=== PATIENT | female | born 1970 | race Hispanic/Latino ===

== ENCOUNTER 2019-03-04 10:05 | Inpatient (IN) | payer SELFPAY ==
--- NOTE | 2019-03-04 10:37 | Emergency Department Report ---
ED Chest Pain HPI - General Chief Complaint: Chest Pain Stated Complaint: CHEST PAIN Time Seen by Provider: 03/04/19 10:29 Source: patient Mode of arrival: Ambulatory Limitations: No Limitations - History of Present Illness Initial Comments: 48 year old female the past medical history CAD/MS with stent placement to mid LAD in 2013 (at [facility]), previous apical thrombus, current smoker, and hypertension presents to the hospital complains of left-sided chest tightness since 5:36 AM. Patient is intermittent and radiates to the left side of the neck. Mild shortness of breath without nausea, vomiting, or diaphoresis. Similar to previous MS but "more severe". Aggravating or alleviating factors reported. Patient took 10 tablets of aspirin 81 mg this morning. Otherwise, patient has been has only been taking aspirin 81 mg daily. She has been noncom pliant with her Plavix, blood pressure medication, and is not currently taking a statin. She reports that she had a "bad heart attack" that she has self-limited and had angioplasty. Pt also admit to heavy alcohol use last night. She is not currently being seen by a [facility] specialists - Related Data Previous Rx's Medication Instructions Recorded Last Taken Type Aspirin [Aspirin BABY CHEW TAB] 81 mg PO QDAY #30 tab.chew 03/23/13 Unknown Rx Atorvastatin [Lipitor] 40 mg PO QHS #30 tab 03/23/13 Unknown Rx Clopidogrel [Plavix] 75 mg PO QDAY #30 tablet 03/23/13 Unknown Rx Enoxaparin [Lovenox] 60 mg SQ BID #14 syringe 03/23/13 Unknown Rx Nicotine [Habitrol] 21 mg TD DAILY #30 patch 03/23/13 Unknown Rx Warfarin [Coumadin] 5 mg PO DAILY@1700 #30 tablet 03/23/13 Unknown Rx Allergies Allergy/AdvReac Type Severity Reaction Status Date / Time No Known Allergies Allergy Unverified 03/20/13 11:14 Heart Score - HEART Score History: Slightly suspicious EKG: Non-specific Age: 45-65 Risk factors: > 3 risk factors or hx of atherosclerotic disease Troponin: < normal limit HEART Score: 4 ED Review of Systems ROS: Stated complaint: CHEST PAIN Other details as noted in HPI Comment: All other systems reviewed and negative ED Past Medical Hx - Past Medical History Hx Hypertension: No Hx Heart Attack/AMI: No Hx Congestive Heart Failure: No Hx Diabetes: No Hx Deep Vein Thrombosis: No Hx Pulmonary Embolism: No Hx Liver Disease: No Hx Renal Disease: No Hx Sickle Cell Disease: No Hx Arthritis: No Hx Seizures: No Hx Kidney Stones: Yes (3 yrs ago) Hx Asthma: No Hx COPD: No Hx Tuberculosis: No Hx Dementia: No Hx HIV: No Additional medical history: Negative for cardiac problems. - Surgical History Hx Coronary Stent: Yes (03/20/13) Hx Open Heart Surgery: No Hx Pacemaker: No Hx Internal Defibrillator: No Hx Cholecystectomy: No Hx Appendectomy: No Hx Breast Surgery: No Additional Surgical History: kidney stones - Social History Smoking Status: Current Every Day Smoker - Medications Home Medications: Home Medications Medication Instructions Recorded Confirmed Last Taken Type Aspirin [Aspirin BABY CHEW TAB] 81 mg PO QDAY #30 tab.chew 03/23/13 Unknown Rx Atorvastatin [Lipitor] 40 mg PO QHS #30 tab 03/23/13 Unknown Rx Clopidogrel [Plavix] 75 mg PO QDAY #30 tablet 03/23/13 Unknown Rx Enoxaparin [Lovenox] 60 mg SQ BID #14 syringe 03/23/13 Unknown Rx Nicotine [Habitrol] 21 mg TD DAILY #30 patch 03/23/13 Unknown Rx Warfarin [Coumadin] 5 mg PO DAILY@1700 #30 tablet 03/23/13 Unknown Rx ED Physical Exam - General Limitations: No Limitations - Other Other exam information: General: No acute distress Head: Atraumatic Eyes: normal appearance ENT: Moist mucous membranes Neck: Normal appearance, no midline tenderness Chest: Clear to auscultation bilaterally CV: Regular rate and rhythm Abdomen: Soft, normal bowel sounds, nontender, nondistended, no rebound or guarding Back: Normal inspection Extremity: Normal inspection, full range of motion, no calf tenderness or leg edema Neuro: Alert O x 3, no facial asymmetry, speech clear, no gross motor sensory deficit Psych: Appropriate behavior Skin: No rash ED Course Vital Signs 03/04/19 03/04/19 03/04/19 10:20 10:31 10:45 Temperature Pulse Rate 79 79 Respiratory 22 10 L Rate Blood Pressure 160/94 136/81 Blood Pressure [Left] O2 Sat by Pulse 98 96 96 Oximetry 03/04/19 03/04/19 03/04/19 11:00 11:04 11:15 Temperature Pulse Rate 83 77 79 Respiratory 12 13 Rate Blood Pressure 153/87 153/87 147/86 Blood Pressure [Left] O2 Sat by Pulse 94 97 Oximetry 03/04/19 03/04/19 03/04/19 11:30 11:45 12:00 Temperature Pulse Rate 71 68 70 Respiratory 12 15 15 Rate Blood Pressure 138/81 127/74 118/71 Blood Pressure [Left] O2 Sat by Pulse 94 94 Oximetry 03/04/19 03/04/19 03/04/19 12:09 12:15 12:30 Temperature 98 F Pulse Rate 72 69 67 Respiratory 16 18 16 Rate Blood Pressure 115/65 115/69 Blood Pressure 118/71 [Left] O2 Sat by Pulse 95 95 97 Oximetry 03/04/19 12:45 Temperature Pulse Rate 66 Respiratory 18 Rate Blood Pressure 120/68 Blood Pressure [Left] O2 Sat by Pulse Oximetry - Consultations Consultation #1: 03/04/19 10:[address] Stewart plant clerk entry level sales consultant. He evaluated today's EKG as well as EKG from 2013. EKG changes today thought to be as a result of previous MS and not representing acute findings. He does not recommend cath activation at this time. He recommends heparin and medical management and consulting previous cardiology group to see if they want to manage the patient since she was seen by [facility] here in the past 03/04/19 11:16 DR Sims with [facility] in ED to evaluate pt. DEBRA score - Debra Score Age > 65: (0) No Aspirin use within the Past 7 Days: (1) Yes 3 or more CAD Risk Factors: (1) Yes 2 or more Angina events in past 24 hrs: (1) Yes Known CAD with more than 50% Stenosis: (0) No Elevated Cardiac Markers: (0) No (actually unknown) ST Deviation Greater than 0.5mm: (1) Yes DEBRA Score: 4 ED Medical Decision Making - Lab Data Result diagrams: 03/04/19 Unknown 03/04/19 Unknown - EKG Data -: EKG Interpreted by Me EKG shows normal: sinus rhythm, ST-T waves (ant lateral and st elevation, q waves) - EKG Data When compared to previous EKG there are: no significant change - Radiology Data Radiology results: report reviewed (cxr: naf) - Medical Decision Making Pr presents with chest pain without any acute EKG findings. Case discussed with cardiology and EKG findings thought to be due to sequela of previous MS. Patient is at risk for MS, as it was not, and reocclusion of stent given noncompliance with medication and continued tobacco use. Initial troponin is negative. Patient took 810 mg of aspirin prior to arrival. Heparin initiated, morphine and Zofran for pain, patient will be admitted to hospitalist service with cardiology consultation. admission was d/w Dr Howard, awaiting Dr Panchal call back. orders placed - Differential Diagnosis mi, unstable angina, gerd Critical Care Time: No Critical care attestation.: If time is entered above; I have spent that time in minutes in the direct care of this critically ill patient, excluding procedure time. ED Disposition Clinical Impression: Chest pain, Hx of coronary artery disease, Hx of heart artery stent, Ischemic cardiomyopathy, Noncompliance with medication regimen, Smoker Disposition: OP ADMIT IP TO THIS HOSP Is pt being admited?: Yes Condition: Stable Time of Disposition: 11:31 ([place]/hosp)
[2019-03-04] MEDS ORDERED: NITROGLYCERIN 2% OINT 1 GM TP ONE (10:38)
[2019-03-04 10:44] LABS: Basophils # (Auto) 0.1 K/mm3 (0.0-0.1); Basophils % (Auto) 0.7 % (0.0-1.8); Eosinophils % (Auto) 0.2 % (0.0-4.3); Hematocrit 49.6 % (30.3-42.9); Hemoglobin 16.8 gm/dl (10.1-14.3); Lymphocytes # (Auto) 1.7 K/mm3 (1.2-5.4); Lymphocytes % (Auto) 18.8 % (13.4-35.0); Mean Corpuscular HGB Conc 34 % (30-34); Mean Corpuscular Volume 92 fl (79-97); Monocytes # (Auto) 0.4 K/mm3 (0.0-0.8); Monocytes % (Auto) 4.2 % (0.0-7.3); Platelet Count 181 K/mm3 (140-440); Red Blood Count 5.38 M/mm3 (3.65-5.03); Red Cell Distribution Width 13.1 % (13.2-15.2)
[2019-03-04] MEDS ORDERED: HEPARIN 10,000 UNITS/10 ML VIAL IV ONE (10:46)
[2019-03-04 10:54] LABS: INR 0.95 (0.87-1.13)
[2019-03-04 10:55] LABS: Partial Thromboplastin Time 25.8 Sec. (24.2-36.6)
[2019-03-04] MEDS ORDERED: HEPARIN/ 0.45% NACL DRIP 25,000 UNIT/500 ML BAG IV SCH ×2 (11:00→12:00)
--- NOTE | 2019-03-04 11:00 | XRay Report ---
CHEST 1 VIEW INDICATION: Chest Pain. COMPARISON: 03/20/2013. FINDINGS: Support devices: None. Heart: Normal. Lungs/Pleura: No acute pulmonary or pleural findings. IMPRESSION: 1. No acute findings. Signer Name: Nito Valle MD Signed: 03/04/2019 10:55 AM Workstation Name: [id number]
[2019-03-04] MEDS ORDERED: ONDANSETRON 4 MG/2 ML INJ IV ONE (11:13)
[2019-03-04] MEDS ORDERED: MORPHINE 4 MG/1 ML INJ IV ONE (11:13)
[2019-03-04 11:20] LABS: Alanine Aminotransferase 19 units/L (7-56); Albumin 4.6 g/dL (3.9-5); BUN/Creatinine Ratio 13; Blood Urea Nitrogen 10 mg/dL (7-17); Calcium 9.4 mg/dL (8.4-10.2); Hemolysis Index 11
[2019-03-04] MEDS ORDERED: FAMOTIDINE 20 MG/2 ML INJ IV ONE (11:22)
--- NOTE | 2019-03-04 14:06 | History and Physical Report ---
History of Present Illness Date of admission: 03/04/19 11:52 Chief complaint: Chest pain History of present illness: 48-year-old woman with history of coronary artery disease status post stents in the past, previous apical thrombus, current everyday smoker and hypertension. Patient presents to the hospital with chest pain that began acutely this morning at 530. The pain is left-sided of her chest radiates to her left side of her neck. She did report associated shortness of breath nausea vomiting she also had diaphoresis. She states that her symptoms were exactly like her previous [place] except that it was more severe. The patient then took 10 tablets of baby aspirin because she was convinced that she was having a heart attack. She had not been compliant with her Plavix and blood pressure medications, she also reports that she stopped taking the statin. She not actually explained while she was not taking her meds, she also admits to drinking heavily for celebration last night. She has not seen her internetworking technician in a long time. Past medical history CAD status post stent history of [place] in 2013, nephrolithiasis, hyperlipidemia Surgical history lithotripsy Social history current every day smoker, denies daily alcohol abuse, but drank heavily last night for Winnie celebration Family history; heart disease Medications and Allergies Allergies Allergy/AdvReac Type Severity Reaction Status Date / Time No Known Allergies Allergy Unverified 03/20/13 11:14 Home Medications Medication Instructions Recorded Confirmed Last Taken Type Aspirin [Aspirin BABY CHEW TAB] 81 mg PO QDAY #30 tab.chew 03/23/13 Unknown Rx Atorvastatin [Lipitor] 40 mg PO QHS #30 tab 03/23/13 Unknown Rx Clopidogrel [Plavix] 75 mg PO QDAY #30 tablet 03/23/13 Unknown Rx Enoxaparin [Lovenox] 60 mg SQ BID #14 syringe 03/23/13 Unknown Rx Nicotine [Habitrol] 21 mg TD DAILY #30 patch 03/23/13 Unknown Rx Warfarin [Coumadin] 5 mg PO DAILY@1700 #30 tablet 03/23/13 Unknown Rx Active Meds: Active Medications Heparin Sodium/Sodium Chloride (Heparin/ 0.45% Nacl-25,000 Unit/500 Ml) 25,000 unit in 500 mls @ 20 mls/hr IV TITRATE AXEL; Protocol Review of Systems All systems: negative (Chest pain) Exam - Constitutional Vitals: Temp Pulse Resp BP Pulse Ox 98 F 66 18 120/68 97 03/04/19 12:09 03/04/19 12:45 03/04/19 12:45 03/04/19 12:45 03/04/19 12:30 General appearance: Present: mild distress, well-nourished - EENT Eyes: Present: PERRL ENT: hearing intact, clear oral mucosa - Neck Neck: Present: supple, normal ROM - Respiratory Respiratory effort: normal Respiratory: bilateral: CTA - Cardiovascular Heart Sounds: Present: S1 & S2. Absent: rub, click - Extremities Extremities: pulses symmetrical, No edema Peripheral Pulses: within normal limits - Abdominal General gastrointestinal: Present: soft, non-tender, non-distended, normal bowel sounds Female genitourinary: Present: normal - Integumentary Integumentary: Present: clear, warm, dry - Musculoskeletal Musculoskeletal: gait normal, strength equal bilaterally - Psychiatric Psychiatric: appropriate mood/affect, intact judgment & insight - Neurologic Neurologic: CNII-XII intact, moves all extremities Results - Labs CBC & Chem 7: 03/04/19 Unknown 03/04/19 Unknown Labs: Laboratory Last Values WBC 9.3 K/mm3 (4.5-11.0) 03/04/19 Unknown RBC 5.38 M/mm3 (3.65-5.03) H 03/04/19 Unknown Hgb 16.8 gm/dl (10.1-14.3) H 03/04/19 Unknown Hct 49.6 % (30.3-42.9) H 03/04/19 Unknown MCV 92 fl (79-97) 03/04/19 Unknown MCH 31 pg (28-32) 03/04/19 Unknown MCHC 34 % (30-34) 03/04/19 Unknown RDW 13.1 % (13.2-15.2) L 03/04/19 Unknown Plt Count 181 K/mm3 (140-440) 03/04/19 Unknown Lymph % (Auto) 18.8 % (13.4-35.0) 03/04/19 Unknown [place] % (Auto) 4.2 % (0.0-7.3) 03/04/19 Unknown Eos % (Auto) 0.2 % (0.0-4.3) 03/04/19 Unknown Baso % (Auto) 0.7 % (0.0-1.8) 03/04/19 Unknown Lymph # 1.7 K/mm3 (1.2-5.4) 03/04/19 Unknown [place] # 0.4 K/mm3 (0.0-0.8) 03/04/19 Unknown Eos # 0.0 K/mm3 (0.0-0.4) 03/04/19 Unknown Baso # 0.1 K/mm3 (0.0-0.1) 03/04/19 Unknown Seg Neutrophils % 76.1 % (40.0-70.0) H 03/04/19 Unknown Seg Neutrophils # 7.1 K/mm3 (1.8-7.7) 03/04/19 Unknown PT 12.8 Sec. (12.2-14.9) 03/04/19 Unknown INR 0.95 (0.87-1.13) 03/04/19 Unknown APTT 25.8 Sec. (24.2-36.6) 03/04/19 Unknown Sodium 143 mmol/L (137-145) 03/04/19 Unknown Potassium 4.0 mmol/L (3.6-5.0) 03/04/19 Unknown Chloride 104.0 mmol/L (98-107) 03/04/19 Unknown Carbon Dioxide 24 mmol/L (22-30) 03/04/19 Unknown Anion Gap 19 mmol/L 03/04/19 Unknown BUN 10 mg/dL (7-17) 03/04/19 Unknown Creatinine 0.8 mg/dL (0.7-1.2) 03/04/19 Unknown Estimated GFR > 60 ml/min 03/04/19 Unknown BUN/Creatinine Ratio 13 % 03/04/19 Unknown Glucose 81 mg/dL (65-100) 03/04/19 Unknown Calcium 9.4 mg/dL (8.4-10.2) 03/04/19 Unknown Total Bilirubin 0.40 mg/dL (0.1-1.2) 03/04/19 Unknown AST 24 units/L (5-40) 03/04/19 Unknown ALT 19 units/L (7-56) 03/04/19 Unknown Alkaline Phosphatase 105 units/L (35-129) 03/04/19 Unknown Troponin T < 0.010 ng/mL (0.00-0.029) 03/04/19 Unknown Total Protein 7.8 g/dL (6.3-8.2) 03/04/19 Unknown Albumin 4.6 g/dL (3.9-5) 03/04/19 Unknown Albumin/Globulin Ratio 1.4 % 03/04/19 Unknown Assessment and Plan Assessment and plan: 48-year-old woman with history of CAD status post [place] in 2013 after which she received a stents, who has not been compliant with follow-up with internetworking technician on her cardiac meds who presents after an alcohol binge for Winnie celebration she woke up early this morning with severe chest pain which was concerning to patient she was convinced was suffering an [place] Non-STEMI cardiology input appreciated, continue heparin drip, aspirin, plavix, beta- sarita morphine, nitroglycerin as needed, statin Patient for cath in the a.m. Tobacco abuse/dependence Smoking cessation counseling performed for 10 minutes, nicotine patches when necessary Nonadherence due to lack of insurance Patient counseled, case management consulted to provide outpatient resources Preventative health counseling performed for 17 minutes DVT prophylaxis, patient is fully anticoagulated on heparin drip
[2019-03-04] MEDS ORDERED: ACETAMINOPHEN 325 MG TAB PO PRN (14:17)
[2019-03-04] MEDS ORDERED: ONDANSETRON 4 MG/2 ML INJ IV PRN (14:17)
--- NOTE | 2019-03-04 14:19 | Consultation ---
History of Present Illness Consult date: 03/04/19 Consult reason: chest pain Past History Past Medical History: acute VT, CAD, hypertension Past Surgical History: cholecystectomy Social history: smoking (chronic smoker,1 ppd.) Medications and Allergies Allergies Allergy/AdvReac Type Severity Reaction Status Date / Time No Known Allergies Allergy Unverified 03/20/13 11:14 Home Medications Medication Instructions Recorded Confirmed Last Taken Type Aspirin [Aspirin BABY CHEW TAB] 81 mg PO QDAY #30 tab.chew 03/23/13 Unknown Rx Atorvastatin [Lipitor] 40 mg PO QHS #30 tab 03/23/13 Unknown Rx Clopidogrel [Plavix] 75 mg PO QDAY #30 tablet 03/23/13 Unknown Rx Enoxaparin [Lovenox] 60 mg SQ BID #14 syringe 03/23/13 Unknown Rx Nicotine [Habitrol] 21 mg TD DAILY #30 patch 03/23/13 Unknown Rx Warfarin [Coumadin] 5 mg PO DAILY@1700 #30 tablet 03/23/13 Unknown Rx Active Meds: Active Medications Heparin Sodium/Sodium Chloride (Heparin/ 0.45% Nacl-25,000 Unit/500 Ml) 25,000 unit in 500 mls @ 20 mls/hr IV TITRATE AXEL; Protocol Review of Systems Constitutional: no weight loss Ears, nose, mouth and throat: no ear discharge Breasts: deferred Cardiovascular: chest pain, lightheadedness, shortness of breath Respiratory: no cough Gastrointestinal: no abdominal pain Rectal: no bleeding Integumentary: no rash Physical Examination Vital Signs Pulse Ox 98 03/04/19 10:20 General appearance: no acute distress Cardiac: Positive: Reg Rate and Rhythm, S4. Negative: Audible Murmur Lungs: Positive: Decreased Breath Sounds Neuro: Positive: Grossly Intact Extremities: Absent: edema Results 03/04/19 Unknown 03/04/19 Unknown Cardiac Enzymes 03/04/19 Range/Units Unknown AST 24 (5-40) units/L Coagulation 03/04/19 Range/Units Unknown PT 12.8 (12.2-14.9) Sec. INR 0.95 (0.87-1.13) APTT 25.8 (24.2-36.6) Sec. CBC 03/04/19 Range/Units Unknown WBC 9.3 (4.5-11.0) K/mm3 RBC 5.38 H (3.65-5.03) M/mm3 Hgb 16.8 H (10.1-14.3) gm/dl Hct 49.6 H (30.3-42.9) % Plt Count 181 (140-440) K/mm3 Lymph # 1.7 (1.2-5.4) K/mm3 [place] # 0.4 (0.0-0.8) K/mm3 Eos # 0.0 (0.0-0.4) K/mm3 Baso # 0.1 (0.0-0.1) K/mm3 Comprehensive Metabolic Panel 03/04/19 Range/Units Unknown Sodium 143 (137-145) mmol/L Potassium 4.0 (3.6-5.0) mmol/L Chloride 104.0 (98-107) mmol/L Carbon Dioxide 24 (22-30) mmol/L BUN 10 (7-17) mg/dL Creatinine 0.8 (0.7-1.2) mg/dL Glucose 81 (65-100) mg/dL Calcium 9.4 (8.4-10.2) mg/dL AST 24 (5-40) units/L ALT 19 (7-56) units/L Alkaline Phosphatase 105 (35-129) units/L Total Protein 7.8 (6.3-8.2) g/dL Albumin 4.6 (3.9-5) g/dL EKG interpretations - EKG Sinus rhythms and dysrhythmias: sinus rhythm (Q waves and ST elevation in inferior leads and also persistent ST elevations in anterior leads,felt to be chronic.) Assessment and Plan 48-year-old female started having left-sided chest tightness starting around 5:30 in the morning. This pain is intermittent and radiating to the neck. Associated with shortness of breath. She she took 10 baby aspirin this morning. She is still having persistent pain along with shortness of breath. She says her pain is worse than her previous heart attack. She also says she had heavy alcohol use last night. Usually she drinks one beer a day. EKG showed sinus rhythm with ST elevations and Q waves in the inferior and anterior leads however the changes appear to be chronic. Troponin level was found to be normal. Because of persistent chest pain she will be treated as unstable angina. Serial cardiac enzymes were obtained. She will be admitted limited to monitored bed and the consider cardiac catheterization. Patient had acute apical myocardial infarction in 2013 and he had his mid LAD ba re-metal stent inserted at that time. Subsequently patient had acute inferior wall myocardial infarction and had angioplasty performed on 10/26/[address] [facility], [place], she was noted to have a complete occlusion of the midright coronary artery and underwent primary angioplasty and stenting of the right coronary artery with a bare metal stent. However at the same time she was noted to have chronic total occlusion of the mid to distal LAD in the previously stented segment, 75-80% DNA was stenosis of the midcircumflex artery was planned to have selective stated intervention possibly as an outpatient on October Patient was last seen in the office on 05/16/2014 and her medications at that time included aspirin 81 mg daily, atorvastatin 40 mg, carvedilol 3.125 mg twice a day isosorbide 30 mg a day Lasix 20 mg a day and Plavix 75 mg day. However patient is not taking any of the medications except for baby aspirin. She is not seeing any primary care physician. She continues to smoke one pack per day. At this time considering the above clinical picture would Restart her on previo us medications. Will consider cardiac catheterization for definitive diagnosis and treatment. Patient is agreeable with the plan.
[2019-03-04] MEDS ORDERED: MORPHINE 4 MG/1 ML INJ ONE ×3 (14:44→19:28)
[2019-03-04] MEDS: MORPHINE 2 MG/1 ML INJ IV PRN ×8 (14:50→22:00)
[2019-03-04] MEDS ORDERED: SODIUM CHLORIDE 0.9% 500 ML 500 ML IV SCH (15:00)
[2019-03-04] MEDS: METOPROLOL TARTRATE 50 MG TAB PO SCH ×2 (15:05→22:18)
[2019-03-04] MEDS ORDERED: MORPHINE 2 MG/1 ML INJ ONE ×4 (15:40→21:58)
[2019-03-04] MEDS: NICOTINE 21 MG/24 HR PATCH TD SCH (15:46)
[2019-03-04] MEDS ORDERED: NITROGLYCERIN 0.4 MG TAB SUBL SL ONE (17:46)
[2019-03-04] MEDS: NITROGLYCERIN 0.4 MG TAB SUBL SL PRN ×3 (17:52→19:50)
[2019-03-04 19:03] LABS: BUN/Creatinine Ratio 19; Blood Urea Nitrogen 15 mg/dL (7-17); Calcium 8.7 mg/dL (8.4-10.2); Hemolysis Index 7
[2019-03-04 20:15] LABS: Chol/HDL Ratio 3.76 %
[2019-03-05] MEDS ORDERED: SODIUM CHLORIDE 0.9% 500 ML 500 ML ONE (07:58)
[2019-03-05] MEDS ORDERED: ASPIRIN EC 81 MG TAB PO ONE (07:58)
[2019-03-05] MEDS: ASPIRIN 81 MG TAB CHEW PO SCH ×2 (08:03→12:04)
[2019-03-05] MEDS: CLOPIDOGREL 75 MG TAB PO SCH ×2 (08:05→10:00)
[2019-03-05] MEDS ORDERED: CLOPIDOGREL 75 MG TAB ONE (08:06)
[2019-03-05] MEDS ORDERED: HEPARIN/NS 5000 UNIT/500ML 1,000 ML IR ONE (08:15)
[2019-03-05] MEDS ORDERED: MIDAZOLAM 2 MG/2 ML INJ ONE (08:15)
[2019-03-05] MEDS ORDERED: VERAPAMIL 5 MG/2 ML INJ ONE (08:16)
[2019-03-05] MEDS: NITROGLYCERIN SYRINGE 3 ML ONE ×2 (09:13→09:17)
[2019-03-05] MEDS: LIDOCAINE (2%) 20 MG/1 ML VIAL 20 ML MDV INFILTRATI ONE ×2 (09:15→09:16)
[2019-03-05] MEDS: fentaNYL 100 MCG/2 ML INJ ONE ×2 (09:15→09:54)
[2019-03-05] MEDS: HEPARIN 10,000 UNITS/10 ML VIAL ONE ×3 (09:16→09:30)
[2019-03-05] MEDS ORDERED: NITROGLYCERIN SYRINGE 3 ML ONE (10:03)
[2019-03-05] MEDS ORDERED: CLOPIDOGREL 300 MG TAB ONE (10:12)
[2019-03-05] MEDS ORDERED: ALUM-MAG HYDROXIDE-SIMETHICONE 200-200-20MG/5ML ORAL LIQD 30 ML ONE (10:12)
--- NOTE | 2019-03-05 10:38 | Cardiac Catherization Report ---
INDICATION FOR PROCEDURE: The patient is a pleasant 48-year-old female with history of STEMI in 2014, repeat PCI in 2015, history of noncompliance, active tobacco use, presents with chest pain, non-ST elevation myocardial infarction, referred for left heart catheterization. Risks, benefits, and alternatives explained at length prior to obtaining informed consent. PROCEDURE IN DETAIL: The patient was brought to catheterization lab in a postabsorptive state, prepped and draped in sterile fashion. Ryan's test in right hand was normal. A 2 mL of 2% lidocaine used to anesthetize the right wrist. A standard 6-Indonesian hydrophilic sheath used to cannulate the right radial artery via modified Seldinger technique. All exchanges performed to exchange a J-tip guidewire. JL3.5 catheter was used to engage the left main. No dampening or ventricularization. Cineangiography performed in all projections. JR4 catheter used to cross the aortic valve under fluoroscopic guidance. Left ventriculography performed in 30 FLORES and 30 DOROTHY projections via hand injection, catheter flushed. Manual pullback performed with continuous pressure monitoring. Catheter used to engage the right coronary. No dampening or ventricularization. Cineangiography performed in all projections. I directly supervised the administration of moderate sedation with fentanyl and Versed from 9:15 a.m. to 10:20 a.m. No immediate complications. DATA: The patient remained in normal sinus rhythm throughout the procedure. Aortic pressure is 130/70, LV pressure is 130, LVP of 25 mmHg. Left ventriculography reveals anterior apical dyskinesis, estimated ejection fraction of 35-40%. No evidence of aortic stenosis. CORONARY ANATOMY: This is a right dominant system. Left main without significant disease, bifurcates in left anterior descending and left circumflex. Left main without significant disease. LAD is a moderate sized vessel, courses anterior intergroove. There is a chronic total occlusion of proximal LAD. This has been noted since 2015. Left to left and right to left collaterals were identified. There is a high OM trunk, which without significant disease. Mid left circumflex with an ulcerated 99% stenosis. Angiographic evidence of atherothrombosis is noted. Right coronary is a moderate sized vessel, courses AV groove, distally bifurcates into posterior and posterolateral branch. There is a long stent in the proximal and mid right coronary, mild in-stent restenosis approximately 20%, maximal narrowing of approximately 30% in distal end of the stent, DEBRA 3 flow. Moderate small vessel disease noted in the distal right coronary. Right to left collaterals identified. At this point, I believe the circumflex lesion is the culprit lesion of her presentation, thus we decided to proceed with PCI. Heparin given. Abnormal ACT confirmed. The patient reloaded with aspirin and Plavix. A Wenden wire used to cross the lesion without difficulty. We used a 2.5 x 12 balloon to predilate the lesion. Then, I used a 2.75 x 18 Bladimir drug-eluting stent deployed at 10 ANDREI for 30 seconds. Excellent result. However, there is some mild distal edge dissection, which caused chest pain. I placed a 2.5 x 12 Eidson stent overlapping distally to cover the small edge dissection. The patient is clinically improved. The overlap and the mid proximal stent are postdilated to 2.75. There is still mild waste in the mid segment of the proximal stent approximately 10-20%, DEBRA 3 flow. Intravascular ultrasound reveals a well-opposed, well expanded stent, calcified vessel. No dissection distally, proximally. Left main and proximal/ostial circumflex with mild plaque, but no significant disease, DEBRA 3 flow throughout. The patient is chest pain free by the end of the procedure. CONCLUSIONS 1. Multivessel coronary artery disease in this right dominant system with a culprit 99% atherothrombotic stenosis in the high mid left circumflex. A. Successful IVUS guided PCI with placement of overlapping drug-eluting stents with excellent final angiographic and ultrasonographic results. No complications. 2. Known chronic total occlusion of high mid LAD with extensive left to left and right to left collaterals (known since 2014). 3. [id number] nonobstructive in-stent restenosis in the proximal and mid right coronary without obstructive disease noted with moderate small vessel disease distally. 4. Anterior and anterior apical dyskinesis with estimated ejection fraction of 35-40%. 5. No evidence of aortic stenosis. The patient is clinically stable, chest pain free, spent over 10 minutes discussing smoking cessation techniques and importance of compliance overall, especially dual antiplatelet therapy is discussed again with the patient. Standard radial care. She is clinically stable, transfer for likely discharge tomorrow. Results of procedure explained to the patient and family. All questions and concerns were addressed. [facility]# [id number] OSC[facility]/SHITAL CARMEN
--- NOTE | 2019-03-05 10:39 | Progress Note ---
Assessment and Plan This is a pleasant 48yo WF: 1. 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 sHTN 3. Tobacco Abuse 4. h/o chronic medication noncompliance 5. Remote h/o apical thrombus * check TTE Plan: Pt is clinically stable and doing better. Standard radial care. DAPT/statin F/U TTE Diet and lifestyle modification Long d/w pt regarding compliance. Anticipate am dc. - Patient Problems (1) Chest pain Current Visit: Yes Status: Acute (2) Hx of coronary artery disease Current Visit: Yes Status: Acute (3) Hx of heart artery stent Current Visit: Yes Status: Acute (4) Ischemic cardiomyopathy Current Visit: Yes Status: Acute (5) Noncompliance with medication regimen Current Visit: Yes Status: Acute (6) Smoker Current Visit: Yes Status: Acute (7) ST elevation myocardial infarction (STEMI) of anterior wall Current Visit: No Status: Acute Subjective Date of service: 03/05/19 Interval history: cp overnight Objective Vital Signs Temp Pulse Resp BP BP Pulse Ox 03/04/19 22:53 98.1 F 66 16 104/56 95 03/04/19 22:40 72 03/04/19 22:21 71 16 110/63 03/04/19 22:18 74 110/63 03/04/19 22:13 67 110/63 03/04/19 22:00 110/63 03/04/19 21:40 98.3 F 18 98 03/04/19 21:15 71 18 109/54 03/04/19 21:00 66 11 L 109/54 03/04/19 20:45 71 17 102/54 03/04/19 20:31 66 15 102/54 03/04/19 20:15 67 15 102/54 03/04/19 20:00 67 15 102/54 03/04/19 19:50 68 116/62 03/04/19 19:45 74 19 116/62 03/04/19 19:41 72 16 116/62 03/04/19 19:40 68 116/62 03/04/19 19:15 70 15 116/62 03/04/19 19:00 67 17 116/62 03/04/19 18:45 71 15 112/60 03/04/19 18:31 66 15 112/60 03/04/19 18:15 75 21 127/100 03/04/19 18:00 72 18 127/100 03/04/19 17:52 68 125/76 03/04/19 17:45 70 16 107/65 03/04/19 17:31 70 17 107/65 03/04/19 17:15 67 16 107/65 03/04/19 17:00 66 20 125/76 03/04/19 16:45 76 12 107/65 03/04/19 16:39 107/65 97 03/04/19 16:00 64 17 107/65 03/04/19 15:45 68 17 110/58 94 03/04/19 15:30 67 16 106/57 95 03/04/19 15:15 72 19 101/48 03/04/19 15:05 67 99/45 03/04/19 15:00 67 17 99/45 03/04/19 14:45 20 116/67 98 03/04/19 14:30 111/61 95 03/04/19 14:15 104/61 93 03/04/19 14:00 112/63 94 03/04/19 13:45 112/63 94 03/04/19 13:30 105/58 93 03/04/19 13:15 105/69 92 03/04/19 13:00 20 118/66 96 03/04/19 12:45 66 18 120/68 03/04/19 12:30 67 16 115/69 97 03/04/19 12:15 69 18 115/65 95 03/04/19 12:09 98 F 72 16 118/71 95 03/04/19 12:00 70 15 118/71 94 03/04/19 11:45 68 15 127/74 94 03/04/19 11:30 71 12 138/81 03/04/19 11:15 79 13 147/86 97 03/04/19 11:04 77 153/87 03/04/19 11:00 83 12 153/87 94 03/04/19 10:45 79 10 L 136/81 96 03/04/19 10:31 79 22 160/94 96 - Physical Examination Neuro: Positive: Grossly Intact Extremities: Absent: edema - Labs and Meds Cardiac Enzymes 03/04/19 Range/Units Unknown AST 24 (5-40) units/L Coagulation 03/04/19 Range/Units Unknown PT 12.8 (12.2-14.9) Sec. INR 0.95 (0.87-1.13) APTT 25.8 (24.2-36.6) Sec. Lipids 03/04/19 Range/Units 18:32 Triglycerides 119 (2-149) mg/dL Cholesterol 207 H (50-199) mg/dL HDL Cholesterol 55 (40-59) mg/dL Cholesterol/HDL Ratio 3.76 % CBC 03/04/19 Range/Units Unknown WBC 9.3 (4.5-11.0) K/mm3 RBC 5.38 H (3.65-5.03) M/mm3 Hgb 16.8 H (10.1-14.3) gm/dl Hct 49.6 H (30.3-42.9) % Plt Count 181 (140-440) K/mm3 Lymph # 1.7 (1.2-5.4) K/mm3 [place] # 0.4 (0.0-0.8) K/mm3 Eos # 0.0 (0.0-0.4) K/mm3 Baso # 0.1 (0.0-0.1) K/mm3 Comprehensive Metabolic Panel 03/04/19 03/04/19 Range/Units 18:32 Unknown Sodium 141 143 (137-145) mmol/L Potassium 3.8 4.0 (3.6-5.0) mmol/L Chloride 102.2 104.0 (98-107) mmol/L Carbon Dioxide 27 24 (22-30) mmol/L BUN 15 10 (7-17) mg/dL Creatinine 0.8 0.8 (0.7-1.2) mg/dL Glucose 131 H 81 (65-100) mg/dL Calcium 8.7 9.4 (8.4-10.2) mg/dL AST 24 (5-40) units/L ALT 19 (7-56) units/L Alkaline Phosphatase 105 (35-129) units/L Total Protein 7.8 (6.3-8.2) g/dL Albumin 4.6 (3.9-5) g/dL - EKG Sinus rhythms and dysrhythmias: sinus rhythm (Q waves and ST elevation in inferior leads and also persistent ST elevations in anterior leads,felt to be chronic.)
[2019-03-05] MEDS: METOPROLOL TARTRATE 50 MG TAB PO SCH ×2 (12:03→22:36)
[2019-03-05] MEDS: NICOTINE 21 MG/24 HR PATCH TD SCH (12:03)
[2019-03-05] MEDS: MORPHINE 2 MG/1 ML INJ IV PRN ×3 (12:05→22:35)
--- NOTE | 2019-03-05 19:33 | Progress Note ---
Assessment and Plan Assessment and plan: --Non-ST elevation [place]; Coronary angiogram; status post PCI 2 Ejection fraction 35-40% The patient is placed on dual antiplatelets aspirin and Plavix Continue beta blockers and nitrates Cardiology following --History of coronary artery disease status post PCI Patient noncompliant with medications Advised to comply with medications diet and follow-up visits --Ongoing tobacco use; smoking cessation counseling Advised nicotine patch --Dyslipidemia; statins Low-cholesterol diet --Hypertension; moderate control Continue current antihypertensives and when necessary medications --Remote history of apical thrombus; Possible BARBIE tomorrow --Medical noncompliance; Advised compliance with medications diet and follow-up visits Monitor and adjust management as needed Cardiology recommendations Josy appreciated Possible discharge home tomorrow if stable Plan of care reviewed with the patient, and her nurse History Interval history: Patient was admitted with non-ST elevation [place] Underwent left heart catheterization status post PCI 2 Patient feels slightly better complaints of some pain in the wrist Denies chest pain or shortness of breath Vital signs reviewed Hospitalist Physical - Constitutional Vitals: Temp Pulse Resp BP Pulse Ox 98.2 F 53 L 18 123/61 98 03/05/19 16:20 03/05/19 16:20 03/05/19 16:20 03/05/19 16:20 03/05/19 16:20 General appearance: Present: no acute distress, well-nourished - EENT Eyes: Present: PERRL, EOM intact - Neck Neck: Present: supple, normal ROM - Respiratory Respiratory effort: normal Respiratory: bilateral: diminished, negative: rales, rhonchi, wheezing - Cardiovascular Rhythm: regular Heart Sounds: Present: S1 & S2 - Extremities Extremities: no ischemia, No edema - Abdominal General gastrointestinal: soft, non-tender, non-distended, normal bowel sounds - Integumentary Integumentary: Present: clear, warm - Psychiatric Psychiatric: appropriate mood/affect, cooperative - Neurologic Neurologic: CNII-XII intact, moves all extremities Results - Labs CBC & Chem 7: 03/04/19 Unknown 03/04/19 Unknown Labs: Laboratory Last Values WBC 9.3 K/mm3 (4.5-11.0) 03/04/19 Unknown RBC 5.38 M/mm3 (3.65-5.03) H 03/04/19 Unknown Hgb 16.8 gm/dl (10.1-14.3) H 03/04/19 Unknown Hct 49.6 % (30.3-42.9) H 03/04/19 Unknown MCV 92 fl (79-97) 03/04/19 Unknown MCH 31 pg (28-32) 03/04/19 Unknown MCHC 34 % (30-34) 03/04/19 Unknown RDW 13.1 % (13.2-15.2) L 03/04/19 Unknown Plt Count 181 K/mm3 (140-440) 03/04/19 Unknown Lymph % (Auto) 18.8 % (13.4-35.0) 03/04/19 Unknown [place] % (Auto) 4.2 % (0.0-7.3) 03/04/19 Unknown Eos % (Auto) 0.2 % (0.0-4.3) 03/04/19 Unknown Baso % (Auto) 0.7 % (0.0-1.8) 03/04/19 Unknown Lymph # 1.7 K/mm3 (1.2-5.4) 03/04/19 Unknown [place] # 0.4 K/mm3 (0.0-0.8) 03/04/19 Unknown Eos # 0.0 K/mm3 (0.0-0.4) 03/04/19 Unknown Baso # 0.1 K/mm3 (0.0-0.1) 03/04/19 Unknown Seg Neutrophils % 76.1 % (40.0-70.0) H 03/04/19 Unknown Seg Neutrophils # 7.1 K/mm3 (1.8-7.7) 03/04/19 Unknown PT 12.8 Sec. (12.2-14.9) 03/04/19 Unknown INR 0.95 (0.87-1.13) 03/04/19 Unknown APTT 25.8 Sec. (24.2-36.6) 03/04/19 Unknown Activated Clotting Time 224 (74-137) H 03/05/19 09:51 Heparin Anti-Xa Level 0.38 U.I./ml (0.3-0.7) 03/04/19 18:32 Sodium 143 mmol/L (137-145) 03/04/19 Unknown Potassium 4.0 mmol/L (3.6-5.0) 03/04/19 Unknown Chloride 104.0 mmol/L (98-107) 03/04/19 Unknown Carbon Dioxide 24 mmol/L (22-30) 03/04/19 Unknown Anion Gap 19 mmol/L 03/04/19 Unknown BUN 10 mg/dL (7-17) 03/04/19 Unknown Creatinine 0.8 mg/dL (0.7-1.2) 03/04/19 Unknown Estimated GFR > 60 ml/min 03/04/19 Unknown BUN/Creatinine Ratio 13 % 03/04/19 Unknown Glucose 81 mg/dL (65-100) 03/04/19 Unknown POC Glucose 81 (70-105) 03/05/19 06:44 Hemoglobin A1c 5.5 % (4-6) 03/04/19 18:32 Calcium 9.4 mg/dL (8.4-10.2) 03/04/19 Unknown Total Bilirubin 0.40 mg/dL (0.1-1.2) 03/04/19 Unknown AST 24 units/L (5-40) 03/04/19 Unknown ALT 19 units/L (7-56) 03/04/19 Unknown Alkaline Phosphatase 105 units/L (35-129) 03/04/19 Unknown Troponin T < 0.010 ng/mL (0.00-0.029) 03/04/19 Unknown Total Protein 7.8 g/dL (6.3-8.2) 03/04/19 Unknown Albumin 4.6 g/dL (3.9-5) 03/04/19 Unknown Albumin/Globulin Ratio 1.4 % 03/04/19 Unknown Triglycerides 119 mg/dL (2-149) 03/04/19 18:32 Cholesterol 207 mg/dL (50-199) H 03/04/19 18:32 LDL Cholesterol Direct 148 mg/dL (50-130) H 03/04/19 18:32 HDL Cholesterol 55 mg/dL (40-59) 03/04/19 18:32 Cholesterol/HDL Ratio 3.76 % 03/04/19 18:32 Active Medications - Current Medications Current Medications: Generic Name Dose Route Start Last Admin Trade Name Freq PRN Reason Stop Dose Admin Acetaminophen 650 mg 03/04/19 14:17 Tylenol PO Q6H PRN Pain, Mild (1-3) Aspirin 81 mg 03/05/19 10:00 03/05/19 12:04 Baby Aspirin PO 81 mg QDAY AXEL Administration Atorvastatin Calcium 40 mg 03/04/19 22:00 03/04/19 22:18 Lipitor PO 40 mg QHS AXEL Administration Clopidogrel Bisulfate 75 mg 03/05/19 10:00 03/05/19 10:00 Plavix PO Not Given QDAY AXEL Metoprolol Tartrate 50 mg 03/04/19 15:00 03/05/19 12:03 Metoprolol PO 03/14/19 14:59 50 mg BID AXEL Administration Morphine Sulfate 2 mg 03/04/19 14:07 03/05/19 18:04 Morphine IV 2 mg Q5MIN PRN Administration Chest Pain unrelieved by NTG Nicotine 21 mg 03/04/19 15:00 03/05/19 12:03 Habitrol TD 21 mg DAILY AXEL Administration Nitroglycerin 0.4 mg 03/04/19 14:07 03/04/19 19:50 Nitrostat SL 0.4 mg Q5M PRN Administration Chest Pain Ondansetron HCl 4 mg 03/04/19 14:17 Zofran IV Q4H PRN Nausea And Vomiting Sodium Chloride 10 ml 03/04/19 14:07 Sodium Chloride Flush Syringe 10 Ml IV PRN PRN LINE FLUSH
[2019-03-05] MEDS ORDERED: POLYETHYLENE GLYCOL 3350 17 GM POWDER PO PRN (23:02)
[2019-03-05] MEDS ORDERED: diphenhydrAMINE 25 MG CAP PO ONE (23:02)
[2019-03-05] MEDS ORDERED: DOCUSATE SODIUM 100 MG CAP PO SCH (23:45)
[2019-03-06] MEDS: MORPHINE 2 MG/1 ML INJ IV PRN (04:24)
[2019-03-06] MEDS: NICOTINE 21 MG/24 HR PATCH TD SCH (09:33)
[2019-03-06] MEDS: CLOPIDOGREL 75 MG TAB PO SCH (09:33)
[2019-03-06] MEDS: METOPROLOL TARTRATE 50 MG TAB PO SCH (09:34)
[2019-03-06] MEDS: ASPIRIN 81 MG TAB CHEW PO SCH (09:34)
[2019-03-06] MEDS ORDERED: oxyCODONE /ACETAMINOPHEN 5-325MG TAB PO ONE (11:00)
[2019-03-06 11:07] LABS: Hemoglobin 14.7 gm/dl (10.1-14.3)
[2019-03-06] MEDS ORDERED: METOPROLOL TARTRATE 50 MG TAB PO SCH (11:12)
--- NOTE | 2019-03-06 11:13 | Progress Note ---
Assessment and Plan Currently stable cardiac status. TTE reviewed. Reduce lopressor dosage in setting of sinus bradycardia noted overnight. Consider addition of ACEI/ARB as OP if BPs permit. Pt may discharge home from cardiology standpoint. Follow up in our [place] office with Dr. Frandy Tam on 03/13/2019 @ 2:30PM. The patient has been seen in conjunction with Dr. Rendon who agrees with the assessment and plan of care. - Patient Problems (1) NSTEMI (non-ST elevated myocardial infarction) Current Visit: Yes Status: Acute (2) CAD (coronary artery disease) Current Visit: Yes Status: Chronic (3) Stented coronary artery Current Visit: Yes Status: Chronic (4) HTN (hypertension) Current Visit: Yes Status: Chronic (5) Ischemic cardiomyopathy Current Visit: Yes Status: Acute (6) Tobacco use Current Visit: Yes Status: Chronic (7) Noncompliance with medication regimen Current Visit: Yes Status: Chronic Subjective Date of service: 03/06/19 Principal diagnosis: ACS Interval history: pt resting in bed, no current complaints. in SR on tele with SB noted overnight, HR low 49bpm. Objective Last Vital Signs Temp 98.0 F 03/06/19 07:26 Pulse 61 03/06/19 09:34 Resp 20 03/06/19 10:31 BP 108/52 03/06/19 09:34 Pulse Ox 98 03/06/19 07:26 - Physical Examination General: No Apparent Distress HEENT: Positive: PERRL, Normocephaly, Mucus Membranes Moist Neck: Positive: neck supple, trachea midline Cardiac: Positive: Reg Rate and Rhythm, S1/S2 Lungs: Positive: Decreased Breath Sounds Neuro: Positive: Grossly Intact Abdomen: Negative: Tender Incision: Cardiac Cath Site (RRA c/d/i) Musculoskeletal: No Pain Extremities: Absent: edema - Labs and Meds CBC 03/06/19 Range/Units 09:25 Hgb 14.7 H (10.1-14.3) gm/dl Hct 44.0 H (30.3-42.9) % Plt Count 149 (140-440) K/mm3 - Imaging and Cardiology EKG: report reviewed, image reviewed Echo: report reviewed Cardiac cath: report reviewed - Telemetry EKG Rhythm: Sinus Rhythm - EKG Sinus rhythms and dysrhythmias: sinus rhythm (Q waves and ST elevation in inferior leads and also persistent ST elevations in anterior leads,felt to be chronic.)
[2019-03-06 11:33] LABS: BUN/Creatinine Ratio 11; Blood Urea Nitrogen 9 mg/dL (7-17); Hemolysis Index 17
--- NOTE | 2019-03-06 14:32 | Discharge Summary ---
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 Hospitalization Condition: Stable Hospital course: --Non-ST elevation [place]; Coronary angiogram; status post PCI 2 Ejection fraction 35-40% The patient is placed on dual antiplatelets aspirin and Plavix Continue beta blockers and nitrates Cardiology following --History of coronary artery disease status post PCI Patient noncompliant with medications Advised to comply with medications diet and follow-up visits --Ongoing tobacco use; smoking cessation counseling Advised nicotine patch --Dyslipidemia; statins Low-cholesterol diet --Hypertension; moderate control Continue current antihypertensives and when necessary medications --Remote history of apical thrombus; Possible BARBIE tomorrow --Medical noncompliance; Advised compliance with medications diet and follow-up visits Monitor and adjust management as needed Cardiology recommendations Josy zurita Possible discharge home tomorrow if stable Plan of care reviewed with the patient, and her nurse Time spent for discharge: 32 min Core Measure Documentation - Palliative Care Palliative Care/ Comfort Measures: Not Applicable - Core Measures Any of the following diagnoses?: none Exam - Constitutional Vitals: Temp Pulse Resp BP Pulse Ox 98.2 F 45 L 18 97/44 96 03/06/19 12:05 03/06/19 12:05 03/06/19 12:05 03/06/19 12:05 03/06/19 12:05 Plan Activity: no restrictions Diet: other (cardiac diet) Special Instructions: smoking cessation Additional Instructions: f/u [place] office with Dr. Frandy Bernabe on 03/13/2019 @ 2:30PM. Hold metoprolol if blood pressure is less than 100 systolic, his heart rate is less than 50/min. Smoking cessation Follow up with: PRIMARY CARE, [Primary Care Provider] - 3-5 Days CRISTHIAN BERNABE MD [Staff Physician] - 03/13/19 2:30 pm Prescriptions: Aspirin [Aspirin BABY CHEW TAB] 81 mg PO QDAY #30 tab.chew Nicotine [Habitrol] 21 mg TD DAILY #30 patch Atorvastatin Calcium [Lipitor] 80 mg PO QHS #30 tablet Metoprolol [Lopressor TAB] 25 mg PO BID #60 tablet Clopidogrel [Plavix] 75 mg PO QDAY #30 tablet Lisinopril [Zestril TAB] 2.5 mg PO QDAY #30 tab
[2019-03-06 15:54] VITALS: BP 107/55
== END 2019-03-06 18:50 | disposition home or self-care (01) | DRG 247 ==
LOC: ED 10:05 → IMCU 11:52 → 4A 21:31
PROVIDERS: ADMIT Internal Medicine; ATTEND Internal Medicine
PROC: 027035Z Dilation of Coronary Artery, One Artery with Two Drug-eluting Intraluminal Devices, Percutaneous Approach (ICD-10-PCS; principal; 2019-03-05)
PROC: 4A023N7 Measurement of Cardiac Sampling and Pressure, Left Heart, Percutaneous Approach (ICD-10-PCS; 2019-03-05)
PROC: B2111ZZ Fluoroscopy of Multiple Coronary Arteries using Low Osmolar Contrast (ICD-10-PCS; 2019-03-05)
PROC: B2151ZZ Fluoroscopy of Left Heart using Low Osmolar Contrast (ICD-10-PCS; 2019-03-05)
PROC: B240ZZ3 Ultrasonography of Single Coronary Artery, Intravascular (ICD-10-PCS; 2019-03-05)
DX: I21.4 Non-ST elevation (NSTEMI) myocardial infarction (principal); I25.10 Atherosclerotic heart disease of native coronary artery without angina pectoris; I10 Essential (primary) hypertension; Z79.82 Long term (current) use of aspirin; Z79.01 Long term (current) use of anticoagulants; I25.5 Ischemic cardiomyopathy; Z95.5 Presence of coronary angioplasty implant and graft; Z91.14 Patient's other noncompliance with medication regimen; F17.200 Nicotine dependence, unspecified, uncomplicated; Z86.79 Personal history of other diseases of the circulatory system; Z88.2 Allergy status to sulfonamides; Z82.49 Family history of ischemic heart disease and other diseases of the circulatory system; Z71.6 Tobacco abuse counseling; Z90.49 Acquired absence of other specified parts of digestive tract
CPT/HCPCS: 36415; 71045; 80048; 80053; 80061; 82962; 83036; 84484; 85014; 85018; 85025; 85049; 85347; 85520; 85610; 85730; 92928; 92978; 93005; 93010; 93306; 93458; 96360; 99406; G0378; A9270-GY; C1725; C1753; C1769; C1874; C1887; C1894; C9600; J1644; J2250; J2270; J2405; J3010; J7040; Q9967

== ENCOUNTER 2020-01-21 19:40 | Emergency (ER) | payer SELFPAY ==
--- NOTE | 2020-01-21 19:56 | Emergency Department Report ---
HPI - General Time Seen by Provider: 01/21/20 19:52 - HPI HPI: Room 21 The patient is a 49-year-old female present with a chief complaint of cardiac arrest. Per EMS the patient is homeless her significant other had left her side for approximately 15 minutes and when he returned he states that she was unresponsive. He admits the patient had been consuming alcohol heavily but denied any drug use. EMS was called and arrived on scene at 19:11 to find the patient unresponsive asystolic. ACLS protocols were initiated, however EMS was unable to intubate the patient. An IO was established in the lower extremity and patient was transported to the ED. Upon arrival to the ED the patient was immediately intubated by myself and ACLS protocols were continued but there was no return of spontaneous circulation ED Past Medical Hx - Past Medical History Hx Kidney Stones: Yes (3 yrs ago) Additional medical history: Negative for cardiac problems. - Surgical History Hx Coronary Stent: Yes (03/20/13) Additional Surgical History: kidney stones - Family History Family history: no significant - Social History Smoking Status: Unknown if ever smoked Substance Use Type: Alcohol - Medications Home Medications: Home Medications Medication Instructions Recorded Confirmed Last Taken Type Aspirin [Aspirin BABY CHEW TAB] 81 mg PO QDAY #30 tab.chew 03/06/19 Unknown Rx Atorvastatin Calcium [Lipitor] 80 mg PO QHS #30 tablet 03/06/19 Unknown Rx Clopidogrel [Plavix] 75 mg PO QDAY #30 tablet 03/06/19 Unknown Rx Lisinopril [Zestril TAB] 2.5 mg PO QDAY #30 tab 03/06/19 Unknown Rx Metoprolol [Lopressor TAB] 25 mg PO BID #60 tablet 03/06/19 Unknown Rx Nicotine [Habitrol] 21 mg TD DAILY #30 patch 03/06/19 Unknown Rx ED Review of Systems ROS: Stated complaint: CARDIAC ARREST Other details as noted in HPI Comment: Unobtainable due to pts medical conditions Physical Exam - Physical Exam Physical Exam: GENERAL: The patient is well-developed well-nourished female lying on stretcher receiving chest compressions from [place]. [] HEENT: Normocephalic. Atraumatic. Vomitus in the oropharynx NECK: Supple. Trachea midline CHEST/LUNGS: No spontaneous respirations. Breath sounds equal bilaterally after intubation by myself HEART/CARDIOVASCULAR: No heart sounds. Asystole on monitor ABDOMEN: Abdomen is soft SKIN: There is no diaphoresis. NEURO: GCS 3 T MUSCULOSKELETAL: There is no evidence of acute injury. ED Medical Decision Making - Differential Diagnosis Cardiac arrest, respiratory arrest Critical care attestation.: If time is entered above; I have spent that time in minutes in the direct care of this critically ill patient, excluding procedure time. ED Disposition Clinical Impression: Cardiac arrest Disposition: DC-20 Is pt being admited?: No Does the pt Need Aspirin: No Condition: Poor Time of Disposition: 19:53 (Patient )
== END 2020-01-22 00:51 ==
LOC: ED 19:40
DX: I46.9 Cardiac arrest, cause unspecified (principal); Z98.890 Other specified postprocedural states; Z79.899 Other long term (current) drug therapy; Z88.2 Allergy status to sulfonamides
CPT/HCPCS: 31500; 92950